=== PATIENT | female | born 1940 | race Caucasian/White ===

== ENCOUNTER 2018-07-13 22:17 | Emergency (ER) | payer MEDICARE, OTHER ==
[2018-07-14] MEDS ORDERED: Albuterol 0.083% 2.5 MG/3 ML Neb Soln NEB ONE (00:03)
--- NOTE | 2018-07-14 00:39 | EDM.PDOC ---
ED HPI GENERAL MEDICAL PROBLEM - General Chief Complaint: Cardiovascular Problem Stated Complaint: SOB/HIGH BP Time Seen by Provider: 07/13/18 22:48 Source of Information: Reports: Patient, RN Notes Reviewed - History of Present Illness INITIAL COMMENTS - FREE TEXT/NARRATIVE: 77-year-old female comes in with complaint of unable to "catch her breath". She feels this more with exertion but even at rest states it "seems hard to take a deep breath". However she denies pain with any type of breathing. No chest pain heaviness or tightness. She's not been coughing. No abdominal pain nausea vomiting fever or chills. Denies known history of asthma or COPD. She states she has been having this difficulty with her breathing for about "5 years". She states she had an echocardiogram done about a month ago and has a "leaking valve ". He is scheduled to see a safety sitter about 3-4 weeks from now. She was started on metoprolol 50 mg about a week ago. - Related Data Allergies Allergy/AdvReac Type Severity Reaction Status Date / Time bacitracin Allergy Hives Verified 07/13/18 22:35 [From Neosporin ([id number])] bacitracin zinc Allergy Hives Verified 07/13/18 22:35 [From Neosporin ([id number])] polymyxin B Allergy Hives Verified 07/13/18 22:35 yeast, dried [yeast] AdvReac Cough Verified 07/13/18 22:35 Home Meds: Home Meds Bp Med. 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 Denies: Wheezing, Cough Cardiovascular: Denies: Chest Pain GI/Abdominal: Denies: Abdominal Pain, Nausea, Vomiting Musculoskeletal: Denies: Shoulder Pain, Arm Pain Skin: Reports: No Symptoms Neurological: Reports: No Symptoms ED EXAM, GENERAL - Physical Exam Exam: See Below General Appearance: Alert, No Apparent Distress Throat/Mouth: Normal Inspection, Normal Oropharynx Head: Atraumatic. No: Facial Swelling Neck: Supple, Full Range of Motion, Other Respiratory/Chest: No Respiratory Distress (No JVD), Lungs Clear, Normal Breath Sounds. No: Rhonchi, Wheezing Cardiovascular: Bradycardia (Sinus bradycardia) GI/Abdominal: Soft, Non-Tender. No: Guarding Back Exam: No: CVA Tenderness (L), CVA Tenderness (R) Extremities: Normal Inspection. No: Pedal Edema, Leg Pain Neurological: Alert, No Motor/Sensory Deficits Skin Exam: Warm, Dry, Normal Color EKG INTERPRETATION EKG Date: 07/13/18 Rhythm: Other [place]: Normal (Sinus bradycardia) P-Wave: Present QRS: Normal ST-T: Normal Course - Vital Signs Last Recorded V/S: Last Vital Signs Temp 98.5 F 07/13/18 22:35 Pulse 52 L 07/13/18 22:35 Resp 18 07/13/18 22:35 BP Pulse Ox 100 07/13/18 22:35 - Orders/Labs/Meds Orders: Active Orders 24 hr Category Date Time Status EKG 12 Lead [EKG Documentation Completion] [RC] STAT Care 07/13/18 23:05 Active RT Aerosol Therapy [RC] ASDIRECTED Care 07/14/18 00:04 Active Chest 1V Frontal [CR] Stat Exams 07/13/18 23:04 Taken Labs: Laboratory Tests 07/13/18 07/13/18 Range/Units 23:15 23:15 WBC 5.31 (3.98-10.04) K/mm3 RBC 4.51 (3.98-5.22) M/mm3 Hgb 13.7 (11.2-15.7) gm/L Hct 41.9 (34.1-44.9) % MCV 92.9 (79.4-94.8) fl MCH 30.4 (25.6-32.2) pg MCHC 32.7 (32.2-35.5) g/dl RDW Std Deviation 43.8 (36.4-46.3) fL Plt Count 221 (182-369) K/mm3 MPV 9.8 (9.4-12.3) fl Neut % (Auto) 46.5 (34.0-71.1) % Lymph % (Auto) 40.7 (19.3-51.7) % [place] % (Auto) 8.9 (4.7-12.5) % Eos % (Auto) 2.4 (0.7-5.8) Baso % (Auto) 1.3 H (0.1-1.2) % Neut # (Auto) 2.47 (1.56-6.13) K/mm3 Lymph # (Auto) 2.16 (1.18-3.74) K/mm3 [place] # (Auto) 0.47 H (0.24-0.36) K/mm3 Eos # (Auto) 0.13 (0.04-0.36) K/mm3 Baso # (Auto) 0.07 (0.01-0.08) K/mm3 Sodium 143 (136-145) mEq/L Potassium 3.9 (3.5-5.1) mEq/L Chloride 109 H (98-107) mEq/L Carbon Dioxide 27 (21-32) mEq/L Anion Gap 10.9 (5-15) BUN 14 (7-18) mg/dL Creatinine 0.9 (0.55-1.02) mg/dL Est Cr Clr Drug Dosing 42.06 mL/min Estimated GFR (MDRD) > 60 (>60) mL/min BUN/Creatinine Ratio 15.6 (14-18) Glucose 103 (83-115) mg/dL Calcium 9.3 (8.5-10.1) mg/dL Total Bilirubin 0.2 (0.2-1.0) mg/dL AST 20 (15-37) U/L ALT 29 (14-59) U/L Alkaline Phosphatase 82 (46-116) U/L Troponin I 0.019 (0.00-0.056) ng/mL Total Protein 6.8 (6.4-8.2) g/dl Albumin 3.4 (3.4-5.0) g/dl Globulin 3.4 gm/dL Albumin/Globulin Ratio 1.0 (1-2) Meds: Medications Discontinued Medications Generic Name Dose Route Start Last Admin Trade Name Georgina PRN Reason Stop Dose Admin Albuterol 2.5 mg 07/14/18 00:03 07/14/18 00:17 Proventil Neb Soln NEB 07/14/18 00:04 2.5 mg ONETIME ONE Administration - Re-Assessments/Exams Free Text/Narrative Re-Assessment/Exam: 07/14/18 03:12 Labs were relatively normal, chest x-ray looked fine, EKG as noted showed sinus bradycardia but no other acute changes, she is on metoprolol 50 mg. Sats been running 96-100%. She does not appear to be in respiratory distress. Try an albuterol neb, she did not feel that made any difference. I did consider reducing her dose of metoprolol but will leave her on the 50 mg for now. Valcyte she required heart rate and blood pressures and follow-up clinic either this coming Wednesday or early next week. Discharge instructions as documented. Departure - Departure Time of Disposition: 00:37 Disposition: Home, Self-Care 01 Condition: Fair Clinical Impression: Dyspnea Qualifiers: Dyspnea type: unspecified Qualified Code(s): R06.00 - Dyspnea, unspecified Hypertension Qualifiers: Hypertension type: essential hypertension Qualified Code(s): I10 - Essential ( primary) hypertension Instructions: Shortness of Breath, Adult, [id number], Hypertension Referrals: Caryn Mann NP [Primary Care Provider] - Forms: ED Department Discharge Additional Instructions: Continue metoprolol as prescribed for now. Try check your blood pressure and heart rate a couple of times per day and keep a record for Caryn for your follow-up clinic visit. See Caryn Ramirez either this Wednesday or early next week, call tomorrow morning for appointment. Return to ED as needed if symptoms worsening in any way. - My Orders Last 24 Hours: My Active Orders 07/13/18 23:04 Chest 1V Frontal [CR] Stat 07/13/18 23:05 EKG 12 Lead [EKG Documentation Completion] [RC] STAT 07/14/18 00:04 RT Aerosol Therapy [RC] ASDIRECTED - Assessment/Plan Last 24 Hours: My Active Orders 07/13/18 23:04 Chest 1V Frontal [CR] Stat 07/13/18 23:05 EKG 12 Lead [EKG Documentation Completion] [RC] STAT 07/14/18 00:04 RT Aerosol Therapy [RC] ASDIRECTED
--- NOTE | 2018-07-14 06:17 | CR ---
Chest: Portable view of the chest was obtained. Comparison: Prior chest x-ray of 05/15/16. Heart size appears within normal limits for portable technique. Small hiatal hernia is seen. Tortuous thoracic aorta is present. Very slight scar is noted off the left cardiac apex. Lungs otherwise are clear. Right shoulder prosthesis is seen. Surgical clips are seen from prior cholecystectomy. Impression: 1. Incidental findings. Nothing acute is appreciated on portable chest x-ray. Diagnostic code #2
== END 2018-07-14 00:44 | disposition home or self-care (01) ==
LOC: JD.ED 22:17
DX: I10 Essential (primary) hypertension (principal); Z88.1 Allergy status to other antibiotic agents; Z91.09 Other allergy status, other than to drugs and biological substances
CPT/HCPCS: 36415; 71045; 71045-26; 80053; 84484; 85025; 93005; 93010; 94640; 99284; 99284-25

== ENCOUNTER 2020-11-10 15:21 | Emergency (ER) | payer MEDICARE, OTHER ==
[2020-11-10 15:33] VITALS: BP 140/66; PULSE 68
--- NOTE | 2020-11-10 16:03 | EDM.PDOC ---
ED HPI GENERAL MEDICAL PROBLEM - General Chief Complaint: ENT Problem Stated Complaint: LT EAR TICK BITE Time Seen by Provider: 11/10/20 16:02 - History of Present Illness INITIAL COMMENTS - FREE TEXT/NARRATIVE: 80-year-old female presents the emergency room after sustaining a tick bite to her left ear. Several days ago the patient had a tick bite on her left ear she remove the tick and then she kept picking at the area now it is red swollen and draining. She is noted some swelling going down into her neck. She denies any fevers or chills. Patient believes the tick was black but cannot describe it any better than that it was small. Patient cannot recall when her last tetanus shot was. Left Ear Pain Score (Numeric/FACES): 6 - Related Data Allergies Allergy/AdvReac Type Severity Reaction Status Date / Time bacitracin Allergy Hives Verified 11/10/20 15:33 [From Neosporin ([id number])] bacitracin zinc Allergy Hives Verified 11/10/20 15:33 [From Neosporin ([id number])] polymyxin B Allergy Hives Verified 11/10/20 15:33 yeast, dried [yeast] AdvReac Cough Verified 11/10/20 15:33 Home Meds: Home Meds Bp Med. 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 - Infectious Disease History Infectious Disease History: Reports: Chicken Pox, Measles, Mumps - Past Surgical History GI Surgical History: Reports: Cholecystectomy Musculoskeletal Surgical History: Reports: Shoulder Replacement Social & Family History - Family History Family Medical History: No Pertinent Family History Cardiac: Reports: Aneurysm Other Cardiac Family History: brother and mother - Tobacco Use Tobacco Use Status *Q: Never Tobacco User Second Hand Smoke Exposure: No - Caffeine Use Caffeine Use: Reports: Coffee - Recreational Drug Use Recreational Drug Use: No ED ROS GENERAL - Review of Systems Review Of Systems: See Below Constitutional: Reports: No Symptoms. Denies: Fever, Chills HEENT: Reports: Other (Left external ear pain) Respiratory: Reports: No Symptoms Cardiovascular: Reports: No Symptoms GI/Abdominal: Reports: No Symptoms ED EXAM, GENERAL - Physical Exam Exam: See Below Exam Limited By: No Limitations General Appearance: Alert, No Apparent Distress Eye Exam: Bilateral Eye: Normal Inspection Ears: Other (External ear is quite swollen especially the earlobe and the tissue just above this. She is got an exudative drainage culture obtained) Head: Other (No significant swelling around the ear however she has some little bit of redness extending into her neck just below the ear) Neck: Supple, Non-Tender, Full Range of Motion, Other (Normal redness as described above). No: Lymphadenopathy (L), Lymphadenopathy (R) Respiratory/Chest: No Respiratory Distress, Lungs Clear, Normal Breath Sounds Cardiovascular: Regular Rate, Rhythm, No Edema, No Murmur Course - Vital Signs Last Recorded V/S: Last Vital Signs Temp 36.3 C 11/10/20 15:27 Pulse 68 11/10/20 15:27 Resp 16 11/10/20 15:27 BP 140/66 11/10/20 15:27 Pulse Ox 97 11/10/20 15:27 - Orders/Labs/Meds Orders: Active Orders 24 hr Category Date Time Status Vaccines to be Administered [RC] PER UNIT ROUTINE Care 11/10/20 16:18 Active MISCELLANEOUS CULT [MREF] Stat Lab 11/10/20 16:05 Received Meds: Medications Discontinued Medications Generic Name Dose Route Start Last Admin Trade Name Freq PRN Reason Stop Dose Admin Diphtheria/Tetanus/Acell Pertussis 0.5 ml 11/10/20 16:15 11/10/20 17:03 Diphtheria,Pertussis(Acell),Tetanus Vaccine 0.5 Ml Syringe IM 11/10/20 16:16 0.5 ml .ONCE ONE Administration Doxycycline Hyclate 100 mg 11/10/20 16:15 11/10/20 17:05 Doxycycline 100 Mg Cap PO 11/10/20 16:16 100 mg ONETIME ONE Administration Vancomycin HCl 1 gm/ Sodium 250 mls @ 250 mls/hr 11/10/20 16:19 11/10/20 17:02 Chloride IV 11/10/20 17:18 250 mls/hr ONETIME ONE Administration Vancomycin HCl 1 dose 11/10/20 16:15 Pharmacy To Dose - Vancomycin .XX 11/10/20 16:16 ONETIME ONE - Re-Assessments/Exams Free Text/Narrative Re-Assessment/Exam: 11/10/20 17:26 Case discussed with pharmacy the patient will receive a single dose of vancomycin and be started on oral doxycycline 11/10/20 18:46 Patient tolerated the vancomycin fine we will work on discharge at this point Departure - Departure Time of Disposition: 18:46 Disposition: Home, Self-Care 01 Clinical Impression: Infected tick bite - Discharge Information Referrals: Caryn Mann NP [Primary Care Provider] - Forms: ED Department Discharge Additional Instructions: Return to the emergency room with any questions problems or worsening symptoms. Follow-up in the clinic the middle of this next week for recheck. You been started on doxycycline this is an antibiotic start it tomorrow morning and take 1 twice daily until all gone. Be aware of too much sun exposure as you can get a pretty nasty sunburn while taking this antibiotic if you agree to spend prolonged times out in the sun where longsleeve shirts and a good covering hat. Sepsis Event Note (ED) - Evaluation Sepsis Screening Result: No Definite Risk - Focused Exam Vital Signs: Vital Signs Temp Pulse Resp BP Pulse Ox 11/10/20 15:27 36.3 C 68 16 140/66 97 - My Orders Last 24 Hours: My Active Orders 11/10/20 16:05 MISCELLANEOUS CULT [MREF] Stat 11/10/20 16:18 Vaccines to be Administered [RC] PER UNIT ROUTINE - Assessment/Plan Last 24 Hours: My Active Orders 11/10/20 16:05 MISCELLANEOUS CULT [MREF] Stat 11/10/20 16:18 Vaccines to be Administered [RC] PER UNIT ROUTINE
[2020-11-10] MEDS ORDERED: Doxycycline 100 MG Cap PO ONE (16:15)
[2020-11-10] MEDS ORDERED: Diphtheria,Pertussis(Acell),Tetanus Vaccine 0.5 ML Syringe IM ONE (16:15)
== END 2020-11-10 19:15 | disposition home or self-care (01) ==
LOC: JD.ED 15:21
DX: S00.462A Insect bite (nonvenomous) of left ear, initial encounter (principal); I10 Essential (primary) hypertension; L08.9 Local infection of the skin and subcutaneous tissue, unspecified; Z88.1 Allergy status to other antibiotic agents; Z91.048 Other nonmedicinal substance allergy status; Z23 Encounter for immunization; W57.XXXA Bitten or stung by nonvenomous insect and other nonvenomous arthropods, initial encounter
CPT/HCPCS: 87070; 87205; 90471; 90715; 96365; 99282; A9270; J3370; J7050; 99283

== ENCOUNTER 2022-06-02 08:20 | Day surgery (SDC) | payer MEDICARE, OTHER ==
[2022-06-02 09:07] VITALS: PULSE 64
[2022-06-02] MEDS: Ofloxacin 0.3% Ophth Soln 5 ML Bottle EYERT SCH ×2 (09:16→09:55)
[2022-06-02] MEDS: Brimonidine 0.2% Ophth Soln 5 ML Bottle EYERT SCH ×4 (09:21→10:53)
[2022-06-02] MEDS: Phenylephrine 2.5% Ophth Soln 2 ML Bot EYERT SCH ×6 (09:26→10:31)
[2022-06-02] MEDS: Tropicamide 1% Ophth Soln 15 ML Bottle EYERT SCH ×4 (09:31→10:10)
[2022-06-02] MEDS: Tetracaine HCl/PF 0.5% 4 ML Bottle EYEBOTH SCH ×5 (10:04→10:40)
[2022-06-02] MEDS: Lidocaine 1% PF 2 ML SDV INJECT SCH ×2 (10:05→10:39)
[2022-06-02] MEDS: Cefuroxime 10 MG/ML SYRINGE EYERT SCH ×2 (10:05→10:52)
[2022-06-02] MEDS: Pilocarpine 4% Ophth Soln 15 ML Bot EYERT SCH ×2 (10:05→10:53)
[2022-06-02] MEDS: Polymyxin B/Trimethoprim 10 ML Bottle EYERT SCH ×2 (10:06→10:53)
[2022-06-02 11:11] VITALS: BP 139/79
== END 2022-06-02 11:05 | disposition home or self-care (01) ==
LOC: JD.SDS 08:20
PROVIDERS: ATTEND Ophthalmology
DX: H25.813 Combined forms of age-related cataract, bilateral (principal); H35.3132 Nonexudative age-related macular degeneration, bilateral, intermediate dry stage; H35.363 Drusen (degenerative) of macula, bilateral; H02.831 Dermatochalasis of right upper eyelid; H02.834 Dermatochalasis of left upper eyelid; H16.103 Unspecified superficial keratitis, bilateral; H16.223 Keratoconjunctivitis sicca, not specified as Sjogren's, bilateral; G24.5 Blepharospasm; I10 Essential (primary) hypertension; Z98.890 Other specified postprocedural states; Z79.899 Other long term (current) drug therapy; Z90.49 Acquired absence of other specified parts of digestive tract; Z88.1 Allergy status to other antibiotic agents; Z96.619 Presence of unspecified artificial shoulder joint
CPT/HCPCS: 66984; A9270; C1780; J3490

== ENCOUNTER 2022-07-31 10:28 | Day surgery (SDC) | payer MEDICARE, OTHER ==
[~2022-07-31 10:28] MED LIST: Brimonidine 0.2% Ophth Soln 5 ML Bottle EYELF SCH; Cefuroxime 10 MG/ML SYRINGE EYELF SCH; Lidocaine 1% PF 2 ML SDV INJECT SCH; Ofloxacin 0.3% Ophth Soln 5 ML Bottle EYELF SCH; Phenylephrine 2.5% Ophth Soln 2 ML Bot EYELF SCH; Pilocarpine 4% Ophth Soln 15 ML Bot EYELF SCH; Polymyxin B/Trimethoprim 10 ML Bottle EYELF SCH; Tetracaine HCl/PF 0.5% 4 ML Bottle EYEBOTH SCH; Tropicamide 1% Ophth Soln 15 ML Bottle EYELF SCH
[2022-07-31] MEDS: Ofloxacin 0.3% Ophth Soln 5 ML Bottle EYELF SCH ×3 (11:17→13:13)
[2022-07-31 11:22] VITALS: PULSE 54
[2022-07-31] MEDS: Brimonidine 0.2% Ophth Soln 5 ML Bottle EYELF SCH ×3 (11:22→13:13)
[2022-07-31] MEDS: Phenylephrine 2.5% Ophth Soln 2 ML Bot EYELF SCH ×5 (11:27→12:55)
[2022-07-31] MEDS: Tropicamide 1% Ophth Soln 15 ML Bottle EYELF SCH ×4 (11:32→12:12)
[2022-07-31] MEDS: Tetracaine HCl/PF 0.5% 4 ML Bottle EYEBOTH SCH ×2 (12:44→13:04)
[2022-07-31 13:48] VITALS: BP 144/86
== END 2022-07-31 13:21 ==
LOC: JD.SDS 10:28
PROVIDERS: ATTEND Ophthalmology
DX: H25.812 Combined forms of age-related cataract, left eye (principal); H40.1331 Pigmentary glaucoma, bilateral, mild stage; H16.103 Unspecified superficial keratitis, bilateral; F41.9 Anxiety disorder, unspecified; E78.00 Pure hypercholesterolemia, unspecified; I10 Essential (primary) hypertension; Z88.1 Allergy status to other antibiotic agents; Z88.2 Allergy status to sulfonamides; Z79.890 Hormone replacement therapy; Z79.899 Other long term (current) drug therapy
CPT/HCPCS: 66984; A9270; J0697; C1780; J3490